=== PATIENT | male | born 1945 | race Caucasian/White ===

== ENCOUNTER → 2017-02-09 | Outpatient (CLI) | payer OTHER | LOC: GMAL 10:19 | PROVIDERS: ATTEND Family Medicine | DX: D51.3 Other dietary vitamin B12 deficiency anemia (principal); E55.9 Vitamin D deficiency, unspecified; Z12.5 Encounter for screening for malignant neoplasm of prostate | CPT/HCPCS: 82306; 82607; G0103 ==

== ENCOUNTER → 2017-10-05 | Outpatient (CLI) | payer OTHER ==
--- NOTE | 2017-10-05 09:30 | CT ---
EXAM DESCRIPTION: Upper Extremity: Computed Tomography. CLINICAL HISTORY: ROTATOR CUFF TENDONITIS COMPARISON: None Available. TECHNIQUE: Spiral, axial 2.5 mm scans through the left shoulder girdle without contrast. 2.5 mm bone algorithm reconstructions and 2.0 mm sagittal and coronal reconstructions. Total Exam DLP: 328.47 mGy-cm. This exam was performed according to our departmental CT dose-optimization program which includes automated exposure control, adjustment of the mA and/or kV according to patient size and/or use of iterative reconstruction technique; to reduce radiation dose to as low as reasonably achievable (ALARA). FINDINGS: Migration of the humeral head superiorly within 1 cm of the undersurface of the acromion process. Also minimal anterior migration. This is usually associated with partial or complete supraspinatus tendon tear. No fracture of the humeral head and glenoid, distal clavicle or acromion. Hypertrophic traction lesions on the greater tuberosity and lesser tuberosity. Questionable subchondral radiolucency in the anterior glenoid rim. Suspect glenohumeral joint effusion. Gas density in the AC joint space and radiodensity. Spur on the distal inferior clavicle. No radiodense loose bodies in the remaining joint spaces, or extra-articular soft tissues. IMPRESSION: 1. No fracture or dislocation left shoulder. 2. Superior and anterior migration of the humeral head suggests supraspinatus tendon partial or complete tear. Consider shoulder arthrogram and follow-up CT arthrography to better define rotator cuff abnormality and evaluate the glenoid labrum. 3. Arthrosis left AC joint and small bone density in the joint space. Electronically signed by: Ivan Mccauley MD 10/05/2017 9:29 AM CDT
== END ==
LOC: MRI 07:50
PROVIDERS: ATTEND Family Medicine
DX: M75.102 Unspecified rotator cuff tear or rupture of left shoulder, not specified as traumatic (principal)

== ENCOUNTER → 2017-10-19 | Outpatient (CLI) | payer OTHER ==
--- NOTE | 2017-10-19 12:27 | RAD ---
EXAM DESCRIPTION: Arthrogram Shoulder Left CLINICAL HISTORY: Unspecified rotator cuff tear or rupture of left shoulder COMPARISON: Post-arthrogram CT scan of the left shoulder same date. Previous CT left shoulder 10/05/2017. TECHNIQUE: The procedure was explained to the patient with risks and benefits. The patient gave verbal and written consent. Patient supine on the fluoroscopic table with left shoulder in external rotation. The anterior mid superior left glenohumeral joint was localized by fluoroscopy. The skin was marked, then prepped and draped in a sterile fashion. Intradermal, subcutaneous and intramuscular 1% Xylocaine was given for topical anesthesia. A 1.5 inch, 25-gauge needle was introduced into the anterior superior left glenohumeral joint capsule under fluoroscopic visualization. A test injection of 2 cc of non-ionic contrast was performed under fluoroscopy. Additional 8 CC of contrast mixture of non-ionic contrast/saline/xylocaine was then injected under fluoroscopy. The patient tolerated the procedure well. Active exercise. Patient was transferred to the CT suite for spiral-axial and reconstruction imaging. No immediate complications. Single AP image of the left shoulder in external rotation obtained. Total fluoroscopic time was 0.9 minutes. DAP: 1.136 gy-cm2. IMPRESSION: Successful, fluoroscopic-guided arthrogram of the left shoulder prior to CT scan of the left shoulder. Contrast seen in the subacromion bursa suggestive of rotator cuff tear. Please refer to post arthrogram CT scan of the left shoulder examination and report performed at same visit. Electronically signed by: Ivan Mccauley MD 10/19/2017 12:26 PM CDT
--- NOTE | 2017-10-19 12:35 | CT ---
CT arthrogram left shoulder INDICATION: Shoulder pain rotator cuff tear pacemaker contraindicating MRI TECHNIQUE: Helical CT images left shoulder post arthrogram with multiplanar reformats This exam was performed according to our departmental dose-optimization program, which includes automated exposure control, adjustment of the mA and/or kV according to patient size and/or use of iterative reconstruction technique. FINDINGS: The subscapularis is intact. Ill-defined long head bicep suspect macerated tear with medial mild subluxation axial series 2 image 38. Pacemaker is noted. There is severe thinning throughout the distal supraspinatus to the junction with the infraspinatus with interstitial delamination into the infraspinatus. There is diffuse bursal contrast extension indicating full-thickness disruption likely at the junction of the supraspinatus and infraspinatus. No marked retraction. There is diffuse mild synovitis/debris throughout the bursa and glenohumeral joint. Minimal glenohumeral osteoarthrosis with diffuse labral fraying and focal posterior superior labral cleft/tear. Mild AC joint osteoarthrosis. Mild narrowing of the subacromial space. Mild grade 1 marbling throughout the rotator cuff muscle bellies without end-stage atrophy. 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
== END ==
LOC: CT 09:06
PROVIDERS: ATTEND Family Medicine
DX: M75.102 Unspecified rotator cuff tear or rupture of left shoulder, not specified as traumatic (principal); M19.012 Primary osteoarthritis, left shoulder; Z95.0 Presence of cardiac pacemaker

== ENCOUNTER → 2017-10-26 | Outpatient (CLI) | payer OTHER ==
--- NOTE | 2017-10-26 13:36 | RAD ---
EXAM DESCRIPTION: Shoulder,Left 2 or More Views CLINICAL HISTORY: SHOULDER PAIN COMPARISON: None Available. TECHNIQUE: Four views of the left shoulder. FINDINGS: Normal alignment on transscapular Y view and axillary view with no dislocation. Bones appear osteopenic or osteoporotic with small lucencies in the proximal humerus. Intact clavicle and scapula. Narrowed acromiohumeral distance measures 5 mm. The AC joint appears narrowed. IMPRESSION: Negative for fracture or dislocation. Electronically signed by: Pavan Collazo MD 10/26/2017 1:34 PM CDT
--- NOTE | 2017-10-26 13:36 | RAD ---
EXAM DESCRIPTION: Humerus,Left CLINICAL HISTORY: 72 years Male, PAIN IN UPPER LIMB COMPARISON: None. FINDINGS: No fracture. No dislocation. Osteoporotic appearance of the bones is noted. No focal lytic or destructive lesion. IMPRESSION: Osteoporotic appearance of the left humerus. Electronically signed by: Pavan Collazo MD 10/26/2017 1:35 PM CDT
== END ==
LOC: RAD 08:03
PROVIDERS: ATTEND Orthopaedic Surgery
DX: M25.512 Pain in left shoulder (principal); M79.602 Pain in left arm

== ENCOUNTER → 2018-02-24 | Outpatient (CLI) | payer OTHER | LOC: GMAL 13:22 | PROVIDERS: ATTEND Family Medicine | DX: D51.3 Other dietary vitamin B12 deficiency anemia (principal); R53.83 Other fatigue; E55.9 Vitamin D deficiency, unspecified; Z12.5 Encounter for screening for malignant neoplasm of prostate | CPT/HCPCS: 82306; 82607; 84443; G0103 ==

== ENCOUNTER 2018-11-23 05:53 | Day surgery (SDC) | payer MEDICARE, OTHER ==
[2018-11-23] MEDS ORDERED: LACTATED RINGERS 1,000 ML ONE (06:09)
--- NOTE | 2018-11-23 09:57 | OP ---
DATE OF PROCEDURE: 11/23/18 PREPROCEDURE DIAGNOSIS: 1. History of colonic polyps. Last colonoscopy was 5 years ago. POSTPROCEDURE DIAGNOSIS: 1. Rectal polyps. 2. Diverticulosis. 3. Internal hemorrhoids. 4. Status post right hemicolectomy. PROCEDURE: 1. Colonoscopy with snare polypectomy. SURGEON: Seamus Dewitt MD. SEDATION: Monitored anesthesia care. ESTIMATED BLOOD LOSS: Less than 5 mL. PROCEDURE: Informed consent was obtained prior to sedation. The preprocedure cardiopulmonary assessment was satisfactory. The patient was brought to the Endoscopy Suite and placed in the left lateral decubitus position. The patient was then sedated by the anesthesia team. Digital rectal and perianal exams were normal. The tip of the Olympus colonoscope was inserted into the rectum and advanced under direct visualization to the neoterminal ileum. Preparation of the colon was good. The endoscope was slowly withdrawn. In the ascending colon, there is evidence of an end-to-side ileocolonic anastomosis, which is healthy in appearance and patent. This was traversed. The ileum appeared normal. In the sigmoid colon, there was moderate diverticulosis. In the rectum, there were two 5 mm sessile polyps that were resected with cold snare polypectomy and retrieved for pathology. Retroflexed view of the anal verge showed small, non-bleeding internal hemorrhoids. RECOMMENDATION: 1. Discharge the patient home with escort. 2. Resume regular diet. 3. Continue present medications. 4. Followup pathology. 5. Surveillance in 5 years' time. #[id number] [facility]
[2018-11-23] MEDS ORDERED: PROPOFOL 200 MG/20 ML VIAL IV ONE (10:00)
[2018-11-23] MEDS ORDERED: LIDOCAINE 1% 10 ML VIAL INJ ONE (10:00)
[2018-11-23 10:59] VITALS: BP 161/85; TEMP 97.5; O2SAT 99
== END 2018-11-23 10:45 | disposition home or self-care (01) ==
LOC: AMB 05:53
PROVIDERS: ATTEND Internal Medicine Gastroenterology
DX: Z12.11 Encounter for screening for malignant neoplasm of colon (principal); K62.1 Rectal polyp; K64.8 Other hemorrhoids; K57.30 Diverticulosis of large intestine without perforation or abscess without bleeding; Z86.010 Personal history of colon polyps; E11.9 Type 2 diabetes mellitus without complications; I10 Essential (primary) hypertension; E78.00 Pure hypercholesterolemia, unspecified; Z79.84 Long term (current) use of oral hypoglycemic drugs; Z79.899 Other long term (current) drug therapy; Z88.0 Allergy status to penicillin; Z87.891 Personal history of nicotine dependence; Z95.0 Presence of cardiac pacemaker
CPT/HCPCS: 00811; 36416; 45385; 82948; 88305; J3490; J7120

== ENCOUNTER → 2020-02-15 | Outpatient (CLI) | payer MEDICARE | LOC: GMAL 12:36 | PROVIDERS: ATTEND Family Medicine | DX: D51.3 Other dietary vitamin B12 deficiency anemia (principal); I10 Essential (primary) hypertension; E55.9 Vitamin D deficiency, unspecified; Z12.5 Encounter for screening for malignant neoplasm of prostate; E11.9 Type 2 diabetes mellitus without complications | CPT/HCPCS: 82306; 82607; 84443; G0103 ==

== ENCOUNTER → 2020-02-16 | Outpatient (CLI) | payer MEDICARE ==
--- NOTE | 2020-02-16 17:15 | US ---
EXAM DESCRIPTION: Carotid Duplex: ULTRASOUND. CLINICAL HISTORY: 74 years Male STENOSIS COMPARISON: None. TECHNIQUE: Transcutaneous scanning utilizing mahoney-scale and Doppler modes to evaluate the bilateral carotid systems and vertebral arteries. Percentage of diameter of stenosis or no stenosis recorded will be based upon NASCET criteria. FINDINGS: Peak systolic/end diastolic velocities (CM-Sec) CCA Right 68/15 Left 87/14. ICA Right proximal 95/23, mid 85/21. Left proximal 77/17, mid 87/16. Vertebral Right 58/12 Left 53/7. ECA (PS Only) Right 117 left 337. ICA/CCA peak systolic velocity ratio: Right 1.4 Left 1.0 ICA/CCA end diastolic velocity ratio: Right 1.6 Left 1.1 Vertebral arteries: antegrade flow. Comments Comments: Multiple calcifications in the distal common carotid arteries, carotid artery bifurcations, and bilateral ICAs. Color jugular flow in the right ICA. Bilateral spectral broadening in the ICAs. Diameter and area stenosis in the left ICA is greater than 70% with atherosclerotic calcification. Diameter in area stenoses in the right common carotid bulb and right ICA is less than 70% stenosis. IMPRESSION: 1. Doppler evaluation of the bilateral carotid systems and vertebral arteries shows hemodynamically significant stenoses (70-80%) in the left common carotid-ICA system. Stenoses less than 70% in the right common carotid-ICA system. Severe stenosis proximal left ECA. 2. Significant amount of plaque in the carotid arteries bilaterally. Bilateral vertebral arteries showed antegrade-cephalad flow. Electronically signed by: Ivan Mccauley MD 02/16/2020 5:13 PM CLIENT DELIVERY SPECIALIST
== END ==
LOC: US 08:00
PROVIDERS: ATTEND Family Medicine
DX: I65.23 Occlusion and stenosis of bilateral carotid arteries (principal)

== ENCOUNTER → 2020-02-26 | Outpatient (CLI) | payer MEDICARE ==
--- NOTE | 2020-02-26 15:04 | CT ---
TECHNIQUE: Volumetric CT angiographic data acquisition obtained of the head and neck using CTA head and neck protocol following the intravenous administration of contrast. Axial reconstructions submitted. Coronal, oblique and sagittal MIP slab reconstructions also performed on computer workstation. 3D MIP reformats provided. Grading system is mild <50%, moderate 50-69%, and severe 70% and greater. This exam was performed according to our departmental dose-optimization program, which includes automated exposure control, adjustment of the mA and/or kV according to patient size and/or use of iterative reconstruction technique. CLINICAL HISTORY PROVIDED: OCCLUSION AND STENOSIS OF UNSPECIFIED CAROTID ARTERY COMPARISON: 02/16/2020 FINDINGS: Aorta / Proximal Great Vessels : Atherosclerotic plaque without hemodynamically significant stenosis. Right Carotid: 50-69% tandem stenoses of the common carotid and proximal right internal carotid artery spanning a total distance of 1.5 cm. Right Vertebral: Unremarkable. No stenosis, occlusion, or dissection. Left Carotid: Greater than 70% segmental stenosis of the distal common carotid and proximal left internal carotid artery spanning a distance of approximately 2 cm. Left Vertebral: Unremarkable. No stenosis, occlusion, or dissection. Visible Intracranial Vasculature: Plaque in the carotid siphons. Otherwise unremarkable. Incidental Findings: None of significance. IMPRESSION: 1. Greater than 70% segmental stenosis of the distal left common carotid artery and proximal left internal carotid artery. 2. 50-69% tandem stenoses of the distal right common carotid artery and proximal right internal carotid artery. Electronically signed by: Kenneth Barnes MD 02/26/2020 3:02 PM [employer]
== END ==
LOC: CT 09:09
PROVIDERS: ATTEND Family Medicine
DX: I65.23 Occlusion and stenosis of bilateral carotid arteries (principal)